=== PATIENT | female | born 1990 | race Caucasian/White ===

== ENCOUNTER 2019-11-03 11:41 | Emergency (ER) | payer OTHER ==
[2019-11-03 12:02] VITALS: BMI 28.3
[2019-11-03] MEDS ORDERED: KETOROLAC TROMETHAMINE 60 MG/2 ML VIAL IM ONE (12:58)
[2019-11-03] MEDS ORDERED: CYCLOBENZAPRINE HCL 10 MG TABLET (FP) PO ONE (12:58)
--- NOTE | 2019-11-03 13:29 | PDOC ---
History of Present Illness - General Chief Complaint: Back Pain Stated Complaint: LBP Time Seen by Provider: 11/03/19 12:43 History Source: Patient Exam Limitations: No Limitations - History of Present Illness Initial Comments: 11/03/19 13:43 21-year-old female presents to the emergency with complaints of pain which is sharp intermittent to the right side since jumping on a trampoline at a trampoline park. Patient states was jumping when she landrd on her buttocks but jumped right back up and that is when pain began. Patient denies weakness, abdominal pain, bruising to area or swelling. 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 Patient denies any saddle anesthesia, incontinence, or other complaints at this time. No meds taken. 11/03/19 13:45 Occurred: reports: yesterday Severity: reports: mild, moderate Pain Location: reports: back Method of Injury: Yes: direct blow Modifying Factors: improves with: None Loss of Consciousness: no loss of consciousness Associated Symptoms (Fall): muscle spasms Past History - Travel Traveled outside of the country in the last 30 days: No Close contact w/someone who was outside of country & ill: No - Past Medical History Allergies/Adverse Reactions: Allergies Allergy/AdvReac Type Severity Reaction Status Date / Time Penicillins Allergy Verified 11/03/19 11:58 Home Medications: Ambulatory Orders NK [No Known Home Medication] 11/03/19 COPD: No Other medical history: sciatica, heniated dics - Psycho Social/Smoking Cessation Hx Smoking History: Never smoked Number of Cigarettes Smoked Daily: 2 Hx Alcohol Use: No Drug/Substance Use Hx: No Patient Lives Alone: No Lives with/in: parents Review of Systems - Review of Systems Able to Perform ROS?: No Is the patient limited Spanish proficient: No Constitutional: No: Symptoms Reported HEENTM: No: Symptoms Reported Respiratory: No: Symptoms reported Cardiac (ROS): No: Symptoms Reported ABD/GI: No: Symptoms Reported : No: Symptoms Reported Musculoskeletal: Yes: Back Pain, Muscle Pain (Right lower back) Integumentary: No: Symptoms Reported Neurological: No: Symptoms reported Hematologic/Lymphatic: No: Symptoms Reported *Physical Exam - Vital Signs Last Vital Signs Temp Pulse Resp BP Pulse Ox 97.8 F 119 H 22 H 158/105 H 98 11/03/19 11:59 11/03/19 12:58 11/03/19 12:58 11/03/19 12:58 11/03/19 12:58 - Physical Exam General Appearance: Yes: Nourished, Appropriately Dressed. No: Apparent Distress HEENT: negative: Pale Conjunctivae Neck: positive: Supple Respiratory/Chest: positive: Lungs Clear, Normal Breath Sounds. negative: Respiratory Distress, Accessory Muscle Use Cardiovascular: positive: Regular Rhythm, Tachycardia. negative: Murmur Gastrointestinal/Abdominal: positive: Soft. negative: Tenderness Musculoskeletal: positive: Other (Right paraspinous tenderness). negative: Vertebral Tenderness (No midline tenderness) Integumentary: positive: Normal Color, Warm, Moist Neurologic: positive: Normal Mood/Affect, Motor Strength 5/5 (Ambulatory) Medical Decision Making - Medical Decision Making 11/03/19 13:46 Complaint: Sudden onset of right lower back pain after jumping on a trampoline landing on her buttocks. Patient with history of herniation of L4-L5. Patient has no other complaints this time. Exam: Patient with elevated BP in triage along with elevated heart rate. Otherwise no vertebral tenderness. Patient with right paraspinous tenderness on exam at the L4 level. Plan: Patient had repeat blood pressure which was 150/105. Patient denies history of hypertension. Patient has no urinary complaints, lower extremity edema, complaints of headache or visual changes. Patient was has no complaints of chest pain. Patient ordered for urinalysis urine along with Toradol and Flexeril 11/03/19 14:25 Laboratory Tests 11/03/19 11/03/19 13:30 13:30 Ur Specific [place] 1.028 Urine Ketones Trace H Urine Blood 3+ H Ur Leukocyte Esterase Negative Urine WBC (Auto) 3 Urine RBC (Auto) 473 Urine HCG, Qual Negative Patient states is currently menstruating. Patient states feeling better. Will discharge home with the same medication. Discharge - Discharge Information Problems reviewed: Yes Clinical Impression/Diagnosis: Lumbar strain Condition: Improved Disposition: HOME - Follow up/Referral Referrals: Veronica Haney MD [Primary Care Provider] - - Patient Discharge Instructions Patient Printed Discharge Instructions: DI for Low Back Pain Additional Instructions: At this time I do recommend follow-up with your primary care doctor in regards to elevated blood pressure but in the meanwhile please avoid excessive salt intake in your diet. Drink plenty of water. As far as your back pain I do recommend taking the Motrin and Flexeril as needed for discomfort. - Post Discharge Activity
[2019-11-03 13:49] LABS: EPI CELLS 4.1 /HPF (0-5/HPF); HYALINE CASTS 3 /lpf (0-8); URINE APPEARANCE CLEAR; URINE BACTERIA 16.5 /hpf (NEGATIVE); URINE BILIRUBIN NEGATIVE (NEGATIVE); URINE COLOR DK YELLOW; URINE GLUCOSE (UA) NEGATIVE (NEGATIVE); URINE KETONE TRACE (NEGATIVE); URINE LEUK ESTERASE NEGATIVE (NEGATIVE); URINE NITRITE NEGATIVE (NEGATIVE); URINE PROTEIN TRACE (NEGATIVE); URINE RBC 473 /hpf (0-4); URINE WBC 3 /hpf (0-5)
[2019-11-03] MEDS ORDERED: CYCLOBENZAPRINE HCL 10 MG TABLET (FP) ONE (14:14)
[2019-11-03] MEDS ORDERED: KETOROLAC TROMETHAMINE 60 MG/2 ML VIAL ONE (14:14)
[2019-11-03 15:07] VITALS: BP 155/112; PULSE 106; TEMP 98
[2019-11-03 15:07] LABS: URINE CRYSTALS CALCIUM OXALATE /hpf
== END 2019-11-03 15:08 | disposition home or self-care (01) ==
LOC: JER 11:41
PROC: 3E0233Z Introduction of Anti-inflammatory into Muscle, Percutaneous Approach (ICD-10-PCS; principal; 2019-11-03)
DX: S39.012A Strain of muscle, fascia and tendon of lower back, initial encounter (principal); X50.9XXA Other and unspecified overexertion or strenuous movements or postures, initial encounter; Y93.44 Activity, trampolining; Y92.838 Other recreation area as the place of occurrence of the external cause; Z88.0 Allergy status to penicillin
CPT/HCPCS: 81003; 84703; 96372; 99284-25

== ENCOUNTER 2024-05-16 20:58 | Emergency (ER) | payer OTHER ==
[2024-05-16 21:22] VITALS: TEMP 98.2; BMI 28.2
[2024-05-16 22:00] VITALS: BP 145/102; PULSE 110; RESP 17
== END 2024-05-16 22:30 | disposition home or self-care (01) ==
LOC: JER 20:58
DX: T40.601A Poisoning by unspecified narcotics, accidental (unintentional), initial encounter (principal); M54.50 Low back pain, unspecified; G89.29 Other chronic pain
CPT/HCPCS: 82962; 93005; 93010; 99284-25

== ENCOUNTER 2024-09-19 04:07 | Day surgery (SDC) | payer OTHER ==
[2024-09-18 11:51] VITALS: BMI 29.1
[2024-09-19] MEDS ORDERED: BUPIVACAINE HCL/PF 0.75% 10 ML VIAL ONE (07:15)
[2024-09-19] MEDS ORDERED: ACETAMINOPHEN 500 MG TABLET (FP) PO PRN (09:40)
[2024-09-19 13:33] VITALS: BP 159/129; PULSE 111; RESP 16; TEMP 97.6
== END 2024-09-19 13:50 | disposition home or self-care (01) ==
LOC: JASU-SURG 04:07
PROVIDERS: ATTEND Pain Medicine Pain Medicine
DX: Z53.8 Procedure and treatment not carried out for other reasons (principal)

== ENCOUNTER → 2024-09-26 | Day surgery (SDC) | payer OTHER ==
[2024-09-23 10:01] VITALS: BMI 29.3
[~2024-09-26] MED LIST: DEXAMETHASONE SOD PHOSPHATE 10 MG/1 ML VIAL ONE; LIDOCAINE HCL/PF 1% SDV 5ML VIAL ONE
== END | disposition home or self-care (01) ==
LOC: JASU-SURG 04:27
PROVIDERS: ATTEND Pain Medicine Pain Medicine
DX: Z53.8 Procedure and treatment not carried out for other reasons (principal)
CPT/HCPCS: J1100

== ENCOUNTER 2024-11-21 05:21 | Day surgery (SDC) | payer OTHER ==
[2024-11-20 09:05] VITALS: BMI 28.3
[2024-11-21] MEDS ORDERED: DEXAMETHASONE SOD PHOSPHATE 10 MG/1 ML VIAL ONE (07:07)
[2024-11-21] MEDS ORDERED: LIDOCAINE HCL/PF 1% SDV 5ML VIAL ONE (07:07)
[2024-11-21] MEDS ORDERED: ACETAMINOPHEN 500 MG TABLET (FP) PO PRN (08:35)
[2024-11-21] MEDS: LIDOCAINE 1% P/F 10 MG/ML VIAL INF ONE ×2 (10:05)
[2024-11-21] MEDS: IOHEXOL 180 MG/1 ML ML IJ ONE ×2 (10:06)
[2024-11-21] MEDS: DEXAMETHASONE SOD PHOSPHATE 10 MG/1 ML VIAL IVPUSH ONE ×2 (10:09)
[2024-11-21 10:33] VITALS: BP 113/80; PULSE 79; RESP 16; TEMP 97.6
== END 2024-11-21 10:52 | disposition home or self-care (01) ==
LOC: JASU-SURG 05:21
PROVIDERS: ATTEND Pain Medicine Pain Medicine
PROC: 3E0R3BZ Introduction of Anesthetic Agent into Spinal Canal, Percutaneous Approach (ICD-10-PCS; 2024-11-21)
PROC: 3E0R33Z Introduction of Anti-inflammatory into Spinal Canal, Percutaneous Approach (ICD-10-PCS; principal; 2024-11-21 10:00)
DX: M54.16 Radiculopathy, lumbar region (principal)
CPT/HCPCS: 76000-TC-FY; 81025; J1100